=== PATIENT | male | born 1960 | race Caucasian/White ===

== ENCOUNTER 2017-06-08 14:47 | Emergency (ER) | payer MEDICAID, SELFPAY ==
[2017-06-08 14:48] VITALS: BP 156/106; PULSE 117; RESP 16; TEMP 36.4; O2SAT 92; BMI 39.9
--- NOTE | 2017-06-08 15:13 | ED.VISSUMM ---
- ER Visit Summary Date of Service: 06/08/17 Chief Complaint: Right leg pain History of Present Illness: The patient is a 56 M presenting for right lower extremity pain. He states this has been ongoing for the past 2-3 days. He does not recall any specific injury. He also complains of mild diffuse left ankle pain ?1 month. He went to urgent care and was sent to the ED to rule out DVT. He has no PE/DVT risk factors. He denies chest pain or shortness of breath. Denies fever or other complaints. Physical Examination: Vitals are stable. Patient is afebrile. Alert no acute distress. HEENT exam is unremarkable. Lungs are clear and equal bilaterally. Heart is regular rate and rhythm. Extremities mild right medial thigh tenderness, normal distal pulse. Mild left lateral ankle tenderness, AFROM Skin is warm and dry. No focal neurologic deficit. Remainder of exam is unremarkable. Emergency Department Course and Treatment: We are unable to get a venous Doppler at this time today. He will be given an order form for an outpatient study. Left ankle x-ray shows no acute process. He is advised to follow-up tomorrow morning for a venous Doppler study. Advised to follow-up with his primary care physician. Advised return to ED for worsening complaints. Disposition: Discharge home Impression: Right thigh pain, left ankle pain This note was generated with [employer] dictation software. It may contain incorrect words, spelling, and punctuation that were not noted in review of the chart prior to signing ED Disposition - Plan for ED Patient: Chief Complaint: Other, Pain/Inj Instructions: ED Muscle Pain Leg Cramps Referrals: Magalie Asher MD [Primary Care Provider] - Additional Instructions: Follow up tomorrow morning for ultrasound of legs
--- NOTE | 2017-06-08 15:20 | ED.DEP ---
ED Disposition - Plan for ED Patient: Chief Complaint: Other, Pain/Inj Instructions: ED Muscle Pain Leg Cramps Referrals: Magalie Asher MD [Primary Care Provider] - Additional Instructions: Follow up tomorrow morning for ultrasound of legs
--- NOTE | 2017-06-08 15:22 | RAD_ITS ---
STUDY: X-RAY - LEFT ANKLE REASON FOR EXAM: Male, 56 years old. Chronic pain TECHNIQUE: Three view(s) of the ankle were obtained. COMPARISON: None. FINDINGS: Bones: There are no acute osseous abnormalities. There is a small spur off the inferior calcaneus. Joints: The visualized joints are unremarkable. Soft tissues: The soft tissues are unremarkable. RAD/Ankle min 3 Views IMPRESSION: No significant abnormalities are seen radiographically in the left ankle. Electronically Signed: Eryn Saldana MD at 16:31 EDT Tel Direct: [phone], Service support ,
[2017-06-08 16:12] VITALS: BP 143/95; PULSE 97; RESP 20; O2SAT 94
[2017-06-08 16:33] VITALS: BP 143/97; PULSE 93; RESP 20; TEMP 34.4
== END 2017-06-08 16:50 | disposition home or self-care (01) ==
LOC: ED 16:44
PROVIDERS: Emergency Provider Emergency Medicine; Family Provider Internal Medicine; PCP Internal Medicine
DX: M79.651 Pain in right thigh (principal); M25.572 Pain in left ankle and joints of left foot; I10 Essential (primary) hypertension; Z79.899 Other long term (current) drug therapy
CPT/HCPCS: 73610; 99282

== ENCOUNTER → 2017-06-09 12:07 | Outpatient (CLI) | payer MEDICAID, SELFPAY ==
--- NOTE | 2017-06-09 12:18 | VDLE_ITS ---
Reason For Study: BLE PAIN RIGHT LEFT GSV is normal. GSV is normal. CFV is compressible, spontaneous, phasic, CFV is compressible, spontaneous, phasic, competent and demonstrates normal competent, and demonstrates normal augmentation. augmentation. FV is compressible, spontaneous, phasic, FV is compressible, spontaneous, phasic, competent and demonstrates normal competent and demonstrates normal augmentation. augmentation. POP V is compressible, spontaneous, phasic, POP V is compressible, spontaneous, phasic, competent and demonstrates normal competent and demonstrates normal augmentation. augmentation. T/P Trunk is compressible. T/P Trunk is compressible. PTV is compressible. PTV is compressible. RT PerV is compressible. LT PerV is compressible. Varicosities just above knee (area of pain) Varicosities are noted in the mid calf area are dilated and NON COMPRESSIBLE with are compressible. hyperechoic echoes noted in vessel lumen. Procedure Exam performed in department. A preliminary report was called and/or faxed to ED & Dr. Asher @ 11:40 am. Interpretation Summary Deep veins of the lower extremities are bilaterally patent and compressible segmentally. There is no evidence of deep vein thrombosis on either side. Valvular competence appears intact within the proximal deep venous systems bilaterally. The greater saphenous veins appear bilaterally patent and compressible segmentally. Acute superficial thrombophlebitis is noted involving superficial varicosities above the right knee. Ordering Physician: Joleen Gold Referring Physician: Magalie Asher M.D. Performed By: Meghan Prabhakar, SHEEBA, RVT
== END ==
PROVIDERS: Family Provider Internal Medicine; PCP Internal Medicine; Visit Provider Emergency Medicine
DX: M79.604 Pain in right leg (principal)
CPT/HCPCS: 93970

== ENCOUNTER 2020-08-30 11:46 | Emergency (ER) | payer MEDICAID, SELFPAY ==
[2020-08-30 11:47] VITALS: BP 160/107; PULSE 85; RESP 18; TEMP 36.4; O2SAT 97; BMI 37.8
[2020-08-30 12:16] VITALS: BP 155/97; PULSE 82; RESP 15; O2SAT 96
--- NOTE | 2020-08-30 12:27 | RAD_ITS ---
STUDY: X-RAY - LEFT KNEE REASON FOR EXAM: Left knee pain, felt a pop 3 weeks ago. TECHNIQUE: 3 view(s) of the knee. COMPARISON: None. FINDINGS: Normal visualized distal femur. Normal visualized proximal tibia and fibula. Normal proximal tibiofibular articulation. There is moderate joint space narrowing of the medial femorotibial compartment. Normal lateral femorotibial compartment. There is moderate joint space narrowing of the patellofemoral articulation. The soft tissue structures are unremarkable. RAD/Knee 3 Views IMPRESSION: Arthrosis of the medial femorotibial and patellofemoral compartments. Electronically Signed: Joo Conroy MD at 13:34 EDT Tel , Service support ,
--- NOTE | 2020-08-30 12:27 | VDLE_ITS ---
Reason For Study: pain Procedure LEFT This is a venous duplex using B-mode, color GSV is normal. flow and spectral Doppler. CFV is compressible, spontaneous, phasic, Exam performed portable in ED. competent, and demonstrates normal The exam was abbreviated due to the COVID 19 augmentation. protocol. FV is compressible, spontaneous, phasic, The exam was diagnostic. competent and demonstrates normal A preliminary report was called and/or faxed augmentation. to Dr. Aguiar. POP V is compressible, spontaneous, phasic, competent and demonstrates normal augmentation. T/P Trunk is compressible. PTV is compressible. LT PerV is compressible. VL/Venous Duplex US, Unilateral Interpretation Summary There is no evidence of left lower extremity deep vein thrombosis. Left great s aphenous vein appears patent and compressible segmentally. Ordering Physician: James Tee Performed By: Aquiles Mendoza RVT
--- NOTE | 2020-08-30 12:27 | RAD_ITS ---
STUDY: X-RAY - LEFT ANKLE REASON FOR EXAM: Left ankle pain, no specific injury. TECHNIQUE: 3 view(s) of the ankle. COMPARISON: Radiographs 06/08/2017. FINDINGS: Normal visualized distal tibia and fibula. Normal medial and lateral malleoli. Normal tibiotalar articulation and ankle mortise. There is a small plantar calcaneal enthesophyte. The visualized subtalar, talonavicular, calcaneocuboid and tarsal articulations are normal. The soft tissue structures are unremarkable. RAD/Ankle min 3 Views IMPRESSION: Small plantar calcaneal enthesophyte. Otherwise, unremarkable x-ray examination of the left ankle. Electronically Signed: Joo Conroy MD at 13:40 EDT Tel , Service support ,
--- NOTE | 2020-08-30 14:17 | ED.VIS.LOWEX ---
HPI History of Present Illness Chief Complaint: Lower Extremity Injury Narrative Narrative: Patient presenting secondary to lower extremity pain. Patient states that he was walking and felt a pop in his left knee. This was sometime ago. He states that since then he has had development of swelling in his calf and his ankle. He now has pain in his knee calf and ankle. It is worse with bearing weight. Not necessarily any popping or grinding associated with this. No numbness. No weakness. Patient denies any history of DVT or PE. No chest pain shortness of breath or hemoptysis associated with this. Patient denies that there is any sort of twisting injury associated with this. He has been having difficulty bearing weight to the point where he is now using a cane or crutches. [facility] Medical History Chronic pain Former smoker Hypertension Peptic ulcer Sleep apnea Substance abuse Home Medications clonidine HCl 0.1 mg PO QHS 12/03/12 [History Last Taken Unknown] lidocaine 2 patch TOPICAL PRN PRN 12/03/12 [History Last Taken Unknown] buprenorphine-naloxone 1 tab PO BID 06/08/17 [History Last Taken Unknown] cholecalciferol (vitamin D3) 1 cap PO SA 06/08/17 [History Last Taken Unknown] furosemide 20 mg PO DAILY PRN PRN 06/08/17 [History Last Taken Unknown] lisinopril 5 mg PO DAILY 06/08/17 [History Last Taken Unknown] clindamycin HCl 150 mg PO TID 08/30/20 [History Last Taken Unknown] ibuprofen 400 mg PO Q8H 08/30/20 [History Last Taken Unknown] Allergy/AdvReac Type Severity Reaction Status Date / Time No Known Allergies Allergy Verified 08/30/20 11:49 Social History Smoking Status: Former smoker ROS ROS ED Constitutional Constitutional ED: Denies chills, fever(s) or subjective Cardiovascular Cardiovascular: Denies chest pain Respiratory/Chest Respiratory/Chest: Reports dyspnea Gastrointestinal Gastrointestinal: Denies abdominal pain Musculoskeletal Musculoskeletal: Reports other Details: Left leg pain Integumentary Denies rash Neurologic Neurologic: Denies weakness Hematologic/Lymphatic Hematologic/Lymphatic: Denies easy bleeding or easy bruising EXAM Physical Exam Const Vital Signs: 08/30/20 11:47 08/30/20 12:16 Temperature 97.6 F L Temperature Source Temporal Pulse Rate 85 82 Respiratory Rate 18 15 Blood Pressure 160/107 H 155/97 H Blood Pressure Mean 124 116 Pulse Ox 97 96 Oxygen Delivery Method Room Air Room Air Positive well nourished, well developed and obese General Appearance ED: well developed Nutritional Appearance: obese HEENT normocephalic and atraumatic Neck full ROM Chest Wall inspection of chest normal Resp normal respiratory effort and clear to auscultation bilaterally Cardio regular rate and regular rhythm GI non-distended Extremity Extremity Narrative: Examination the patient's left leg shows some ankle swelling and tenderness to palpation over the medial malleolus. Patient has some minimal swelling of the foot with no real reproducible tenderness to palpation. Normal DP and PT pulses that are bilaterally symmetric. Normal capillary refill. Patient has minimal pain with range of motion of the left knee, no crepitus with range of motion. No real joint effusion. No skin changes. He does have swelling posteriorly on his calf. Neuro oriented x3 Sensorium / Orientation: alert Skin Rashes: no rashes MDM MDM MDM Narrative Medical decision making narrative: Patient presented with pain and swelling in his left leg. Radiographs of the knee and ankle by my personal review as well as radiology show only arthritic changes, no evidence of acute fracture. Duplex ultrasound was obtained was found to be negative. Patient likely has pain and swelling secondary to arthritis. Patient was recommended conservative management. Patient will be given orthopedics with which to follow-up. Patient was discharged in stable condition. Radiography Diagnostic Testing: Radiology Impression Ankle X-Ray 08/30/20 12:27 IMPRESSION: Small plantar calcaneal enthesophyte. Otherwise, unremarkable x-ray examination of the left ankle. Electronically Signed: Joo Conroy MD at 13:40 EDT Tel , Service support , Knee X-Ray 08/30/20 12:27 IMPRESSION: Arthrosis of the medial femorotibial and patellofemoral compartments. Electronically Signed: Joo Conroy MD at 13:34 EDT Tel , Service support , Discharge Plan Triage Chief Complaint: Lower Extremity Injury ED Provider: James Tee Dx/Rx/DC Orders Clinical Impression: Arthritis of knee, left, Arthritis of ankle, left Instructions: ED Knee Pain of Uncertain Cause Prescriptions: No Action clonidine HCl 0.1 MG tablet 0.1 mg PO QHS RF: 0 lidocaine 1 PATCH patch 2 patch topical PRN PRN (Reason: Pain) RF: 0 lisinopril 5 tablet 5 mg PO DAILY RF: 0 furosemide 20 MG tablet 20 mg PO DAILY PRN PRN (Reason: Swelling) RF: 0 buprenorphine-naloxone 1 EACH tablet, sublingual 1 tab PO BID RF: 0 cholecalciferol (vitamin D3) 50,000 UNIT capsule 1 cap PO SA RF: 0 clindamycin HCl 150 mg capsule 150 mg PO TID RF: 0 ibuprofen 200 mg Tablet 400 mg PO Q8H RF: 0 Primary Care Provider: Magalie Asher Referrals: Magalie Asher MD [Primary Care Provider] - Juan Crowder MD [STAFF PHYSICIAN] - As Needed Disposition Disposition: Home, Self Care
== END 2020-08-30 14:29 | disposition home or self-care (01) ==
PROVIDERS: Emergency Provider Emergency Medicine; PCP Internal Medicine
DX: M17.12 Unilateral primary osteoarthritis, left knee (principal); I10 Essential (primary) hypertension; Z87.891 Personal history of nicotine dependence
CPT/HCPCS: 73562; 73610; 93971; 99282